=== PATIENT | female | born 1995 | race Hispanic/Latino ===

== ENCOUNTER 2023-08-11 20:41 | Inpatient (IN) | payer MEDICAID, OTHER ==
[2023-08-11 21:16] VITALS: BMI 28.3
[2023-08-11] MEDS ORDERED: Oxytocin 30 units/NS 500 ML 0 ML ONE (21:23)
[2023-08-11] MEDS ORDERED: Lidocaine 1% (PF) 30 ML VIAL ONE (21:23)
[2023-08-11] MEDS ORDERED: CEFAZOLIN 2 GM VIAL ONE (21:38)
[2023-08-11] MEDS ORDERED: Succinylcholine 200 MG/10 ml SYRINGE FS ONE (21:49)
[2023-08-11] MEDS ORDERED: PROPOFOL 20 ML ONE ×3 (21:49→22:19)
[2023-08-11] MEDS ORDERED: fentaNYL 50 mcg/mL 1 mL Vial ONE ×2 (21:49→22:04)
[2023-08-11] MEDS ORDERED: Oxytocin 10 UNITS/ML VIAL ONE (22:02)
[2023-08-11] MEDS ORDERED: Midazolam HCl 2 mg/2 ml Vial ONE (22:04)
[2023-08-11] MEDS ORDERED: Famotidine/PF 20 mg/2ml Vial ONE (22:14)
[2023-08-11] MEDS ORDERED: Dexamethasone 4 mg/ml Vial ONE (22:15)
[2023-08-11] MEDS ORDERED: Metoclopramide HCl 10 MG/2 ML VIAL ONE (22:15)
[2023-08-11] MEDS ORDERED: Ondansetron PF 4 MG/2 ML Vial ONE (22:15)
[2023-08-11] MEDS ORDERED: Ketorolac Tromethamine 30 MG/ML VIAL ONE (22:24)
[2023-08-11] MEDS ORDERED: Meperidine HCl/PF 25 MG/ML VIAL SLOW IVP PRN (22:32)
[2023-08-11] MEDS ORDERED: Ondansetron PF 4 MG/2 ML Vial IVP PRN ×2 (22:32→22:40)
[2023-08-11] MEDS ORDERED: Morphine Sulfate 2 MG/ML SYRINGE SLOW IVP PRN (22:32)
[2023-08-11] MEDS ORDERED: FENTANYL 500 MCG/10 ML VIAL 2,000 MCG in Sodium Chloride 0.9% 60 ML IV PRN (22:32)
[2023-08-11] MEDS ORDERED: diphenhydrAMINE 50 MG/ML VIAL IVP PRN (22:32)
[2023-08-11] MEDS ORDERED: diphenhydrAMINE 50 MG/ML VIAL IM PRN (22:32)
[2023-08-11] MEDS ORDERED: Naloxone HCl 0.4 mg/ml Vial IV PRN (22:32)
[2023-08-11] MEDS ORDERED: diphenhydrAMINE 25 MG CAP PO PRN (22:32)
[2023-08-11] MEDS ORDERED: Promethazine HCl 25 MG/ML VIAL IM PRN ×3 (22:32→22:40)
[2023-08-11] MEDS ORDERED: Ondansetron HCl/PF 4 MG/2 ML Vial IVP PRN (22:32)
[2023-08-11] MEDS ORDERED: Famotidine/PF 20 mg/2ml Vial SLOW IVP PRN (22:40)
[2023-08-11] MEDS ORDERED: Misoprostol 200 MCG TAB PR PRN (22:40)
[2023-08-11] MEDS ORDERED: Tranexamic Acid 1,000 MG/10 ML VIAL IVP PRN (22:40)
[2023-08-11] MEDS ORDERED: Carboprost 250 MCG/ML AMP IM PRN (22:40)
[2023-08-11] MEDS ORDERED: Diphenoxylate HCl/Atropine Tablet PO PRN (22:40)
[2023-08-11] MEDS ORDERED: Methylergonovine 0.2 MG/ML VIAL IM PRN (22:40)
[2023-08-11] MEDS ORDERED: hydrALAZINE 20 MG/ML VIAL SLOW IVP PRN (22:40)
[2023-08-11] MEDS ORDERED: Bicitra 30 ML UDCUP PO PRN (22:40)
[2023-08-11] MEDS ORDERED: CEFAZOLIN 2 GM in Sodium Chloride 0.9% 100 ML IVPB SCH (22:45)
[2023-08-11] MEDS ORDERED: Sodium Chloride 0.9% 1,000 ML IV SCH ×2 (22:45→23:00)
[2023-08-11] MEDS ORDERED: Oxytocin 30 units/NS 500 ML 500 ML IV SCH (22:45)
[2023-08-11] MEDS ORDERED: FENTANYL 500 MCG/10 ML VIAL 1,000 MCG in Sodium Chloride 0.9% 30 ML IV PRN (22:45)
[2023-08-11] MEDS ORDERED: Lactated Ringer's 1,000 ML IV SCH (22:45)
[2023-08-11] MEDS ORDERED: Communication Order-Pharmacy FS SCH (22:45)
[2023-08-11] MEDS ORDERED: Azithromycin 500 MG VIAL ONE (22:47)
[2023-08-11] MEDS ORDERED: Azithromycin 500 MG in Sodium Chloride 0.9% 250 ML 250 ML IVPB SCH (23:00)
[2023-08-11 23:01] LABS: Hematocrit 39.4 % (34.9-44.5); Hemoglobin 13.2 g/dL (12.0-15.5); Mean Corpuscular HGB CONC 33.5 g/dL (32.0-36.0); Mean Corpuscular Hemoglobin 29.1 pg (27.0-33.0); Mean Platelet Volume 9.6 fl (7.4-10.4); Platelet Count 338 10x3/uL (150-450); RBC Distribution Width 13.6 % (11.5-14.5); Red Blood Cell (RBC) Count 4.53 10x6/uL (3.90-5.03); White Blood Cell (WBC) Count 8.2 10x3/uL (3.5-10.5)
[2023-08-11 23:27] LABS: HBSAg Index 0.07 S/CO (0-0.99); Hep B Surf Ag - L&D Non-Reactive S/CO (NonReactive)
[2023-08-11 23:29] LABS: Syphilis Antibody Nonreactive (Nonreactive); Syphilis Antibody Index 0.05 S/CO (<1.00 Non-Reactive)
[2023-08-11] MEDS ORDERED: metroNIDAZOLE 500 MG in Premix 1 BAG IVPB SCH (23:59)
[2023-08-12] MEDS: cefTRIAXone\\ROCEPHIN 2 GM in Sodium Chloride 0.9% 100 ML IVPB SCH ×2 (00:41→23:09)
[2023-08-12] MEDS ORDERED: hydrALAZINE 20 MG/ML VIAL SLOW IVP PRN (01:05)
[2023-08-12] MEDS ORDERED: Boostrix 0.5 ML (Tdap) VIAL (>/=7 yrs of age) IM ONE (01:05)
[2023-08-12] MEDS ORDERED: Lanolin Ointment 7 GM TUBE TOP PRN (01:05)
[2023-08-12] MEDS ORDERED: diphenhydrAMINE 25 MG CAP PO PRN (01:05)
[2023-08-12] MEDS ORDERED: HYDROcodone/Acetaminophen 5/325 mg Tablet PO PRN (01:05)
[2023-08-12] MEDS ORDERED: Ondansetron PF 4 MG/2 ML Vial IVP PRN (01:05)
[2023-08-12] MEDS ORDERED: Promethazine HCl 25 MG/ML VIAL IM PRN (01:05)
[2023-08-12] MEDS ORDERED: Bisacodyl 10 MG SUPP PR PRN (01:05)
[2023-08-12 04:21] LABS: Hematocrit 26.6 % (34.9-44.5); Hemoglobin 8.7 g/dL (12.0-15.5); Mean Corpuscular HGB CONC 32.7 g/dL (32.0-36.0); Mean Corpuscular Volume 88.7 fl (81.6-98.3); Mean Platelet Volume 9.7 fl (7.4-10.4); Platelet Count 307 10x3/uL (150-450); RBC Distribution Width 13.8 % (11.5-14.5); White Blood Cell (WBC) Count 15.3 10x3/uL (3.5-10.5)
[2023-08-12] MEDS: Ketorolac Tromethamine 30 MG/ML VIAL IVP SCH ×4 (05:22→23:08)
[2023-08-12] MEDS: Docusate 100 MG CAP PO SCH ×2 (08:57→21:07)
[2023-08-12] MEDS: Simethicone Chewable 80 MG TAB PO PRN ×2 (08:57→13:56)
[2023-08-12] MEDS: Prenatal Vitamin 1 TAB PO SCH (08:57)
[2023-08-12] MEDS: Ferrous Sulfate 325 MG TAB PO SCH ×2 (09:05→21:07)
[2023-08-12] MEDS: metroNIDAZOLE 500 MG in Premix 1 BAG IVPB SCH ×2 (10:26→18:24)
[2023-08-12] MEDS: Lactated Ringer's 1,000 ML IV SCH ×2 (14:30→15:33)
[2023-08-12] MEDS: HYDROcodone/Acetaminophen 5/325 mg Tablet PO PRN ×2 (14:33→19:44)
[2023-08-12 15:17] LABS: Hematocrit 18.4 % (34.9-44.5); Hemoglobin 6.1 g/dL (12.0-15.5); Mean Corpuscular HGB CONC 33.2 g/dL (32.0-36.0); Mean Corpuscular Hemoglobin 29.8 pg (27.0-33.0); Mean Corpuscular Volume 89.8 fl (81.6-98.3); Mean Platelet Volume 9.7 fl (7.4-10.4); Platelet Count 237 10x3/uL (150-450); RBC Distribution Width 14.2 % (11.5-14.5); Red Blood Cell (RBC) Count 2.05 10x6/uL (3.90-5.03); White Blood Cell (WBC) Count 10.2 10x3/uL (3.5-10.5)
[2023-08-13] MEDS: metroNIDAZOLE 500 MG in Premix 1 BAG IVPB SCH ×3 (01:41→18:17)
[2023-08-13] MEDS: HYDROcodone/Acetaminophen 5/325 mg Tablet PO PRN ×5 (01:52→23:10)
[2023-08-13 04:01] LABS: Hematocrit 21.5 % (34.9-44.5); Hemoglobin 7.5 g/dL (12.0-15.5); Mean Corpuscular HGB CONC 34.9 g/dL (32.0-36.0); Mean Corpuscular Hemoglobin 30.9 pg (27.0-33.0); Mean Corpuscular Volume 88.5 fl (81.6-98.3); Mean Platelet Volume 9.4 fl (7.4-10.4); Platelet Count 183 10x3/uL (150-450); RBC Distribution Width 14.4 % (11.5-14.5); Red Blood Cell (RBC) Count 2.43 10x6/uL (3.90-5.03); White Blood Cell (WBC) Count 9.4 10x3/uL (3.5-10.5)
[2023-08-13] MEDS: Ibuprofen 800 MG TAB PO SCH ×3 (05:51→21:40)
[2023-08-13] MEDS: Ferrous Sulfate 325 MG TAB PO SCH ×2 (09:24→21:40)
[2023-08-13] MEDS: Docusate 100 MG CAP PO SCH ×2 (09:24→21:40)
[2023-08-13] MEDS: Prenatal Vitamin 1 TAB PO SCH (09:24)
[2023-08-13] MEDS: Simethicone Chewable 80 MG TAB PO PRN (21:40)
[2023-08-13] MEDS: cefTRIAXone\\ROCEPHIN 2 GM in Sodium Chloride 0.9% 100 ML IVPB SCH (23:11)
[2023-08-14] MEDS: metroNIDAZOLE 500 MG in Premix 1 BAG IVPB SCH ×2 (01:33→10:01)
[2023-08-14] MEDS: Ibuprofen 800 MG TAB PO SCH ×2 (05:42→18:18)
[2023-08-14] MEDS: HYDROcodone/Acetaminophen 5/325 mg Tablet PO PRN ×4 (05:43→22:56)
[2023-08-14] MEDS: Docusate 100 MG CAP PO SCH ×2 (10:00→22:56)
[2023-08-14] MEDS: Ferrous Sulfate 325 MG TAB PO SCH ×2 (10:01→18:19)
[2023-08-14] MEDS: Prenatal Vitamin 1 TAB PO SCH (10:01)
[2023-08-14 20:21] VITALS: BP 118/71; TEMP 98.5
== END 2023-08-14 23:50 | disposition home or self-care (01) | DRG 787 ==
LOC: CSHLD/OP 20:41 → CSHLD 21:47 → CSHPED 08-12 01:40
PROVIDERS: ADMIT Family Medicine; ATTEND Family Medicine
PROC: 10D00Z1 Extraction of Products of Conception, Low, Open Approach (ICD-10-PCS; principal; 2023-08-11)
PROC: 3E0P7VZ Introduction of Hormone into Female Reproductive, Via Natural or Artificial Opening (ICD-10-PCS; 2023-08-11)
PROC: 30233N1 Transfusion of Nonautologous Red Blood Cells into Peripheral Vein, Percutaneous Approach (ICD-10-PCS; 2023-08-12)
DX: O24.420 Gestational diabetes mellitus in childbirth, diet controlled (principal); O72.1 Other immediate postpartum hemorrhage; O32.8XX0 Maternal care for other malpresentation of fetus, not applicable or unspecified; Z3A.38 38 weeks gestation of pregnancy; Z37.0 Single live birth
CPT/HCPCS: 36415; 36430; 51702; 85027; 86780; 86850; 86900; 86901; 87340; 99285; J0456; J0696; J1100; J1885; J2001; J2250; J2405; J2590; J2704; J2765; J3010; J3490; J7050; J7120; P9016; S0028